=== PATIENT | male | born 2000 | race Two or more races ===

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

== ENCOUNTER 2022-10-07 21:47 | Emergency (ER) | payer MEDICAID ==
[~2022-10-07] VITALS: Ht 172.7 cm; Wt 100.0 kg
== END 2022-10-07 22:32 | disposition home or self-care (01) ==
LOC: ER 21:47 → EDBD 21:47 → ER 22:32